=== PATIENT | male | born 1965 | race Caucasian/White ===

== ENCOUNTER 2021-05-13 11:07 | Outpatient (CLI) | payer BC, SELFPAY ==
--- NOTE | 2021-05-13 | ECHO_ITS ---
Patient Info Name: Tomas Singletary Age: 56 years : 1965 Gender: Male Ht: 70 in Wt: 210 lbs BSA: 2.19 m2 HR: 51 bpm BP: 174 / 109 mmHg Heart Rhythm: Bradycardia, Sinus Rhythm Exam Date: 05/13/2021 11:44 AM Exam Location: [facility] Patient Status: Outpatient Admit Date: 05/13/2021 Staff Ordering Physician: Arnav Leung MD Loan Manager: Zenaida Attending Provider: Arnav Leung MD Referring Physician: Madhu SINGH; Exam Type: CA echo doppler color flow Study Info Indications I10 - Essential (primary) hypertension Complete two-dimensional, color flow and Doppler transthoracic echocardiogram is performed. Summary 1. Complete two-dimensional, color flow and Doppler transthoracic echocardiogram is performed. 2. Left ventricular chamber dimension is normal. 3. Left ventricular systolic function is normal, estimated at 65-70%. 4. There is mild aortic valve sclerosis. 5. There is mild aortic valve regurgitation. 6. The right coronary cusp appears sclerotic, the left and non coronary cusps are unremarkable. Left Ventricle Left ventricular chamber dimension is normal. Left ventricular systolic function is normal, estimated at 65-70%. The left ventricular diastolic function is normal. Right Ventricle Right ventricular chamber dimension is normal. Left Atria Left atrial chamber dimension is normal. Right Atria Right atrial chamber dimension is normal. Aortic Valve The aortic valve is trileaflet. There is mild aortic valve sclerosis. There is mild aortic valve regurgitation. The right coronary cusp appears sclerotic, the left and non coronary cusps are unremarkable. Pulmonic Valve The pulmonic valve is normal. Mitral Valve The mitral valve has normal leaflets. Tricuspid Valve The tricuspid valve leaflets are normal. Pericardium/Pleural The pericardium appears normal. Aorta The aortic root size at the sinus of Valsalva is normal. Left Ventricular Outflow Tract Name Value Normal LVOT 2D LVOT Diameter 2.1 cm LVOT Doppler LVOT Peak Gradient 4 mmHg LVOT Mean Gradient 2 mmHg LVOT VTI 26 cm LVOT VTI/AV VTI Ratio 0.5 LVOT Stroke Volume 96 ml LVOT CO 14.4 l/min LVOT CI 6.6 l/min/m2 Pulmonic Valve Name Value Normal PV Doppler PV Peak Gradient 4 mmHg PV Regurgitation Doppler MO Peak End Diastolic Velocity 115 cm/s Mitral Valve Name Value Normal
== END 2021-05-13 11:08 | disposition home or self-care (01) ==
PROVIDERS: PCP Family Medicine; Visit Provider Family Medicine
DX: I10 Essential (primary) hypertension (principal); I34.0 Nonrheumatic mitral (valve) insufficiency
CPT/HCPCS: 93306

== ENCOUNTER 2024-03-14 16:54 | Outpatient (CLI) | payer BC, SELFPAY ==
--- NOTE | ~2024-03-14 | XR_ITS ---
Right Shoulder Technique: AP and scapular Y views were obtained. Clinical History: Pain Findings: No fracture or dislocation is seen. Osseous alignment is anatomic. The glenohumeral and acr omioclavicular joint spaces are preserved. Soft tissues are unremarkable. Impression: Unremarkable right shoulder radiographs. Reviewed, dictated and finalized at [facility], [place]. Impression: Unremarkable right shoulder radiographs.
== END 2024-03-14 16:55 | disposition home or self-care (01) ==
LOC: CHSIMG 16:56
PROVIDERS: PCP Family Medicine; Visit Provider Family Medicine
DX: M25.511 Pain in right shoulder (principal)
CPT/HCPCS: 73030